=== PATIENT | female | born 1985 | race Caucasian/White ===

== ENCOUNTER → 2019-01-15 | Outpatient (REF) | payer OTHER ==
[2019-01-24 14:26] LABS: HPV HYBRID CAPTURE II Positive (Negative)
== END ==
LOC: M LAB LCGH 10:37
PROVIDERS: ATTEND Obstetrics & Gynecology
DX: Z12.4 Encounter for screening for malignant neoplasm of cervix (principal); R87.612 Low grade squamous intraepithelial lesion on cytologic smear of cervix (LGSIL)
CPT/HCPCS: 87624; G0123

== ENCOUNTER 2021-03-22 04:51 | Outpatient (CLI) | payer OTHER ==
[~2021-03-22] VITALS: Ht 157.5 cm; Wt 89.0 kg
[2021-03-22] VITALS (11 sets, daily range): BP systolic 106–125; BP diastolic 56–72
[2021-03-22] MEDS ORDERED: KEPP1SOL PO (05:57)
[2021-03-22] MEDS ORDERED: PRENTAB9 PO (05:57)
[2021-03-22] MEDS ORDERED: OMEP10CASR PO (05:57)
[2021-03-22] MEDS ORDERED: ACET325C5 PO (05:57)
[2021-03-22] MEDS ORDERED: FIORICET TAB PO PRN (06:15)
--- NOTE | 2021-03-22 06:15 | IPNPDOC ---
Text Note Date of Service The patient was seen on 03/22/21. NOTE Subjective: Shanna is a 35-year-old female who is a at 34.1 weeks gestation based off of her LMP. She is cared for by [facility]. She presented to the hospital 03/21/21 in the morning after being found by her children passed out in the bathroom. They have ruled it a seizure as she has a seizure disorder, which her Keppra levels have been non-therapeutic. Her neurologist just increa sed the Keppra to 2,000 mg BID. The patient c/o contractions every 10 minutes last night and her cervix was checked and found to be 2/50/-3, which was a change from when she came in and her cervix was 2 cm and 10% effaced. Reports history of migraines and having a migraine for the last 3 days that improved with Esgic last night. States start of headache. Does reports some contractions. Denies vaginal bleeding, bloody show, leaking of fluid. Reports baby is very active. Daughter just tested positive for COVID. Patient rapid COVID is negative. She was given 1 dose of betamethasone at 0247. She also received Magnesium, which was turned off due to it possibly causing low FHR. Medical Hx: -seizure disorder -asthma -migraines/headaches -chronic pelvic pain -depression and anxiety -renal calculi -obesity -PCOS -Ulcer -Hx of pancreatitis Surgical Hx: -appendectomy -cholecystectomy -Gastric bypass -tubal ligation with tubal reversal -elbow surgery -sinus surgery -right wrist -laparoscopy Family Hx: -Mother: diabetes, stroke, brain aneurysm -Father: diabetes, HTN, obesity Social: but in process of divorce, (FOB not her ), works at [employer], denies history of alcohol or drug use/abuse OB Hx: -: at 36 weeks of living female weighting 5 lbs 1 oz; preeclampsia -03/15/03: at 42 weeks of living male weighting 7 lbs 2 oz -09/09/05: of living male at 40 weeks weighting 8 lbs 2 oz Objective: FHR: 120, moderate variability, positive accelerations, no decelerations. Bell Arthur: Contractions: 1 total since she was transferred. VS: see below General: Alert and oriented. Does not appear to be in any discomfort. Respiratory: Regular rate and rhythm without any use of accessory muscles. Abdomen: gravid, soft and not tender to touch Assessment: IUP at 34.1 weeks gestation, transfer from [facility] for possible labor. Plan: Patient to be observed this morning. May order breakfast and take a shower. Encouraged patient to sleep. VS,Fishbone, I+O VS, Fishbone, I+O Vital Signs Date Time Temp Pulse Resp B/P (MAP) Pulse Ox O2 Delivery O2 Flow Rate FiO2 03/22/21 05:06 97.4 54 18 118/71 (87) SUDHA HERNANDEZ CNM Mar 22, 2021 06:15
[2021-03-22] MEDS ORDERED: KEPP10002 PO (06:24)
[2021-03-22] MEDS ORDERED: levETIRAcetam 250MG TABLET (KEPPRA) PO SCH (09:00)
[2021-03-22] MEDS ORDERED: PERCOCET 5MG/325MG TAB PO ONE (11:40)
[2021-03-22] MEDS ORDERED: ONDANSETRON 4MG/2ML VIAL IV ONE (15:00)
--- NOTE | 2021-03-22 16:16 | IPNPDOC ---
Text Note Date of Service The patient was seen on 03/22/21. NOTE Observation progress note/Discharge Shanna is a 35yo at 34w1d transferred from [facility] for possible labor. She has a seizure disorder for which she takes keppra and was recently found to be subtherapeutic on her keppra level so neurologist increased her dose. Yesterday morning she was found unresponsive by her kids and taken to the ER, determined to be post-ictal from a seizure. She was having uterine activity and made slight cervical change, so transferred here. She was given a dose of 12mg IM betamethasone at approx 0200 this morning. Her complaints have been headache, pelvic pressure and ctx. Good movement, no LOF/no vaginal bleeding. Of note, patient's daughter was recently dx'ed with Covid but patient tested negative (she is on contact precautions) Vitals wnl, afebrile Gen: WDWN, resting comfortably in bed Abdomen: soft, gravid, NTTP SCE: 2/thick/high, OOP Cat I FHRT with no regular uterine activity Assessment: Shanna is a 35yo at 34w1d transferred from [facility] for possible labor with no cervical change noted. No regular ctx. Headache improved after a dose of percocet. Reassuring surveillance. Plan: -Discharge to home -RNs confirmed patient can receive 2nd dose of betamethasone tomorrow morning on L&D in [place] -Discussed return precautions -continue keppra as prescribed -Follow up for betamethasone and routine care in [place] MD GUANAKITO Vyas Fishbone I+O Carol CALABRESE I+O Vital Signs Date Time Temp Pulse Resp B/P (MAP) Pulse Ox O2 Delivery O2 Flow Rate FiO2 03/22/21 14:47 97.8 85 113/61 (78) 03/22/21 12:21 16 Room Air Liberty Cates MD Mar 22, 2021 16:16
[2021-03-23] MEDS ORDERED: BETAMETHASONE SOLUSPAN 6MG/ML 5ML VIAL (J0702 PER 3MG) IM ONE (02:45)
== END 2021-03-22 15:58 | disposition home or self-care (01) ==
LOC: M LDO 04:51
PROVIDERS: ATTEND Advanced Practice Midwife
DX: O47.03 False labor before 37 completed weeks of gestation, third trimester (principal); Z3A.34 34 weeks gestation of pregnancy; O99.513 Diseases of the respiratory system complicating pregnancy, third trimester; J45.909 Unspecified asthma, uncomplicated; O99.213 Obesity complicating pregnancy, third trimester; E66.9 Obesity, unspecified; O99.844 Bariatric surgery status complicating childbirth; O99.343 Other mental disorders complicating pregnancy, third trimester; F41.9 Anxiety disorder, unspecified; F32.9 Major depressive disorder, single episode, unspecified; O99.353 Diseases of the nervous system complicating pregnancy, third trimester; G40.909 Epilepsy, unspecified, not intractable, without status epilepticus; G43.909 Migraine, unspecified, not intractable, without status migrainosus; Z90.49 Acquired absence of other specified parts of digestive tract; Z88.8 Allergy status to other drugs, medicaments and biological substances; Z91.041 Radiographic dye allergy status; Z79.899 Other long term (current) drug therapy
CPT/HCPCS: 59025; 96372; 96374; J2405

== ENCOUNTER 2022-02-21 17:29 | Outpatient (CLI) | payer OTHER ==
[2022-02-21] VITALS (11 sets, daily range): BP systolic 120–191; BP diastolic 67–107
[~2022-02-21] VITALS: Ht 157.5 cm; Wt 87.8 kg
[~2022-02-21 17:29] MED LIST: ACET325C5 PO; KEPP10002 PO; KEPP1SOL PO; OMEP10CASR PO; PRENTAB9 PO
[2022-02-21] MEDS ORDERED: HOME MED LIST COMPLETE! XX SCH (17:55)
[2022-02-21] MEDS ORDERED: AMPICILLIN SOD 2 GM in D5W MINI-BAG PLUS 100 ML IV STA (19:43)
[2022-02-21] MEDS ORDERED: LR 1,000 ML IV SCH (19:45)
[2022-02-21] MEDS ORDERED: BETAMETHASONE SOLUSPAN 6MG/ML 5ML VIAL (J0702 PER 3MG) IM SCH (19:45)
[2022-02-21] MEDS ORDERED: CALCIUM GLUCONATE 1,000 MG in D5W MINI-BAG PLUS 100 ML IV PRN (19:45)
[2022-02-21] MEDS ORDERED: MAG Sulf (OBGYN) 20GM/500ML 20,000 MG in IV 1 EA IV SCH (19:45)
[2022-02-21] MEDS ORDERED: MAG Sulf (L&D) 4 GM/100 ML 4 GM in IV 1 EA IV ONE (19:45)
[2022-02-21] MEDS ORDERED: BUTORPHANOL 2 MG/ML INJ (J0595) IV ONE (19:55)
[2022-02-21] MEDS ORDERED: PROMETHAZINE 25MG/ML 1ML VIAL IV ONE (19:55)
[2022-02-21 20:24] LABS: HEMATOCRIT 32.7 % (36.0-47.0); HEMOGLOBIN 10.3 g/dl (12.0-15.5); MEAN CORPUSCULAR HEMOGLOBIN 26.2 pg (27.0-33.0); MEAN CORPUSCULAR HGB CONC 31.5 g/dl (32.0-36.5); MEAN CORPUSCULAR VOLUME 83.2 fl (80.0-96.0); PLATELET COUNT, AUTOMATED 319 10^3/uL (150-450); RED BLOOD COUNT 3.93 10^6/uL (4.00-5.40); WHITE BLOOD COUNT 13.1 10^3/uL (4.0-10.0)
[2022-02-21 20:48] LABS: TOTAL PROTEIN,RANDOM URINE 34.1 MG/DL (0.0-12.0)
[2022-02-21 20:55] LABS: AMPHETAMINES URINE REFLEX NEGATIVE (NEGATIVE); BARBITURATES URINE REFLEX NEGATIVE (NEGATIVE); BENZODIAZEPINES URINE REFLEX NEGATIVE (NEGATIVE); CANNABINOIDS URINE REFLEX NEGATIVE (NEGATIVE); COCAINE METABOLITE URINE REFLE NEGATIVE (NEGATIVE); METHADONE URINE REFLEX NEGATIVE (NEGATIVE); PHENCYCLIDINE URINE REFLEX NEGATIVE (NEGATIVE)
[2022-02-21 21:12] LABS: ALBUMIN 2.5 GM/DL (3.2-5.2); ALT/SGPT 9 U/L (12-78); BILIRUBIN,TOTAL 0.3 MG/DL (0.2-1.0); BLOOD UREA NITROGEN 6 MG/DL (7-18); CARBON DIOXIDE LEVEL 22 MEQ/L (21-32); CHLORIDE LEVEL 111 MEQ/L (98-107); CREATININE FOR GFR 0.64 MG/DL (0.55-1.30); GLOMERULAR FILTRATION RATE > 60.0 (>60); GLUCOSE, FASTING 102 MG/DL (70-100); LDH LACTATE DEHYDROGENASE 188 U/L (84-246); POTASSIUM SERUM 3.7 MEQ/L (3.5-5.1); SODIUM LEVEL 139 MEQ/L (136-145); TOTAL PROTEIN 6.5 GM/DL (6.4-8.2)
[2022-02-21 22:24] LABS: OPIATES URINE REFLEX PENDING CONFIRMATION (NEGATIVE)
== END 2022-02-21 21:28 | disposition home or self-care (01) ==
LOC: M LDO 17:29
PROVIDERS: ATTEND Obstetrics & Gynecology
DX: O26.893 Other specified pregnancy related conditions, third trimester (principal); R10.2 Pelvic and perineal pain; M54.50 Low back pain, unspecified; N89.8 Other specified noninflammatory disorders of vagina; O99.843 Bariatric surgery status complicating pregnancy, third trimester; O09.513 Supervision of elderly primigravida, third trimester; Z3A.29 29 weeks gestation of pregnancy
CPT/HCPCS: 59025; 80053; 80307; 82570; 83615; 84156; 84550; 85027; 86850; 86900; 86901; 87081; 87426; 96372; 96374; 96375; G0480; J0290; J0595; J0702; J2550; J3475

== ENCOUNTER 2022-03-21 12:30 | Outpatient (CLI) | payer OTHER ==
[~2022-03-21] VITALS: Ht 157.5 cm; Wt 86.9 kg
[2022-03-21 12:47] VITALS: BP 115/67
[2022-03-21 18:48] VITALS: BP 114/71
[2022-03-21 20:13] VITALS: BP 110/59
[2022-03-22 02:06] VITALS: BP 121/72
[2022-03-22 06:24] VITALS: BP 104/59
[2022-03-22 07:13] VITALS: BP 92/56
[2022-03-22 07:15] VITALS: BP 91/62
[2022-03-22 07:16] VITALS: BP 116/72
[2022-03-22 08:17] VITALS: BP 119/74
== END 2022-03-22 08:25 | disposition home or self-care (01) ==
LOC: M LDO 12:30
PROVIDERS: ATTEND Advanced Practice Midwife
DX: O60.03 Preterm labor without delivery, third trimester (principal); O99.843 Bariatric surgery status complicating pregnancy, third trimester; O09.513 Supervision of elderly primigravida, third trimester; Z87.59 Personal history of other complications of pregnancy, childbirth and the puerperium; Z3A.33 33 weeks gestation of pregnancy

== ENCOUNTER 2022-04-04 08:29 | Inpatient (IN) | payer OTHER ==
[~2022-04-04] VITALS: Ht 157.5 cm; Wt 88.0 kg
[2022-04-04] VITALS (9 sets, daily range): BP systolic 119–154; BP diastolic 65–84
[2022-04-04] MEDS ORDERED: TRANEXAMIC ACID INJection 1,000 MG in NS 100 ML IV PRN (09:30)
[2022-04-04] MEDS ORDERED: CARBOPROST TROMETHAMINE 250 MCG/ML AMP IM PRN (09:30)
[2022-04-04] MEDS ORDERED: METHYLERGONOVINE MALEATE 0.2 MG/ML VIAL (J2210) IM PRN (09:30)
[2022-04-04] MEDS ORDERED: OXYTOCIN DRIP 30 UNITS in IV 1 EA IV PRN (09:30)
[2022-04-04] MEDS ORDERED: LIDOCAINE 1% MDV 20ML VIAL INFIL PRN (09:30)
[2022-04-04 11:38] LABS: HEMATOCRIT 32.4 % (36.0-47.0); HEMOGLOBIN 10.3 g/dl (12.0-15.5); MEAN CORPUSCULAR HGB CONC 31.8 g/dl (32.0-36.5); MEAN CORPUSCULAR VOLUME 78.6 fl (80.0-96.0); PLATELET COUNT, AUTOMATED 275 10^3/uL (150-450); RED BLOOD COUNT 4.12 10^6/uL (4.00-5.40); WHITE BLOOD COUNT 13.6 10^3/uL (4.0-10.0)
[2022-04-04] MEDS ORDERED: OXYTOCIN 30 UNITS IN 0.9% NaCl 500ML IV BAG (J2590) As Ordered ONE (11:56)
[2022-04-04] MEDS ORDERED: LIDOCAINE 2% INJ 100 MG/5 ML SYRINGE As Ordered ONE (16:26)
[2022-04-04] MEDS ORDERED: KETOROLAC 60MG 2ML VIAL As Ordered ONE (16:26)
[2022-04-04] MEDS ORDERED: propofoL 200 MG/20 ML VIAL As Ordered ONE (16:26)
[2022-04-04] MEDS ORDERED: dexameTHASONE 4 MG/ML 1ML VIAL (J1100 PER 1MG) As Ordered ONE (16:26)
[2022-04-04] MEDS ORDERED: ONDANSETRON 4MG 2ML VIAL As Ordered ONE (16:26)
[2022-04-04] MEDS ORDERED: METOCLOPRAMIDE INJ 10MG/2ML VIAL (J2765 PER 1) As Ordered ONE (16:26)
[2022-04-04] MEDS ORDERED: MIDAZOLAM INJ 2MG/2ML VIAL (J2250 PER 1MG) As Ordered ONE (16:27)
[2022-04-04] MEDS ORDERED: fentaNYL 100 MCG/2 ML INJECTION As Ordered ONE (16:27)
[2022-04-04 16:45] LABS: HIV 1&2 SCREEN CENTAUR NEGATIVE (NEGATIVE)
[2022-04-04] MEDS ORDERED: ROCURONIUM BROMIDE 50 MG/5 ML VIAL As Ordered ONE (16:48)
[2022-04-04] MEDS ORDERED: SUCCINYLCHOLINE 100 MG/5 ML SYRINGE (J0330) As Ordered ONE (16:49)
[2022-04-04] MEDS ORDERED: METHYLERGONOVINE MALEATE 0.2 MG/ML VIAL (J2210) As Ordered ONE (17:04)
[2022-04-04] MEDS: TRANEXAMIC ACID 100 MG/ML 10ML VIAL As Ordered ONE ×2 (17:06→17:08)
[2022-04-04] MEDS ORDERED: UNASYN 3GM VIAL As Ordered ONE (17:06)
[2022-04-04] MEDS ORDERED: CARBOPROST TROMETHAMINE 250 MCG/ML AMP As Ordered ONE (17:08)
[2022-04-04] MEDS ORDERED: OXYTOCIN INJ 10 UNITS/ML VIAL (J2590) As Ordered ONE (17:14)
[2022-04-04] MEDS ORDERED: oxyCODONE 5MG TAB PO PRN (17:25)
[2022-04-04] MEDS ORDERED: ONDANSETRON 4MG 2ML VIAL IV PRN (17:25)
[2022-04-04] MEDS ORDERED: LR 1,000 ML IV SCH (17:25)
[2022-04-04] MEDS ORDERED: fentaNYL 100 MCG/2 ML INJECTION IV PRN (17:25)
[2022-04-04] MEDS ORDERED: MOM 30ML SUSPENSION UDC PO PRN (17:45)
[2022-04-04] MEDS ORDERED: ANUSOL HC CREAM 30GM TOP PRN (17:45)
[2022-04-04] MEDS ORDERED: METHYLERGONOVINE MALEATE 0.2 MG TAB PO PRN (17:45)
[2022-04-04] MEDS ORDERED: ACETAMINOPHEN 500 MG TAB PO PRN (17:45)
[2022-04-04] MEDS ORDERED: DOCUSATE SODIUM 100MG CAPSULE PO PRN (17:45)
[2022-04-04] MEDS ORDERED: OXYTOCIN DRIP 30 UNITS in IV 1 EA IV SCH (17:45)
[2022-04-04] MEDS ORDERED: IBUPROFEN 600MG TAB PO PRN (17:45)
[2022-04-04] MEDS ORDERED: DIBUCAINE 1% OINTMENT 30GM TOP PRN (17:45)
[2022-04-04] MEDS ORDERED: RHOGAM 300 MCG (1500 IU) INJ (J2790) IM SCH (17:45)
[2022-04-04] MEDS ORDERED: ACETAMINOPHEN TAB 650MG DOSE (2X325MG) PO PRN (17:45)
[2022-04-04] MEDS ORDERED: ONDANSETRON 4MG TAB PO PRN (20:25)
[2022-04-04 20:32] LABS: HEMATOCRIT 29.8 % (36.0-47.0); HEMOGLOBIN 9.8 g/dl (12.0-15.5); MEAN CORPUSCULAR HEMOGLOBIN 25.5 pg (27.0-33.0); MEAN CORPUSCULAR HGB CONC 32.9 g/dl (32.0-36.5); MEAN CORPUSCULAR VOLUME 77.6 fl (80.0-96.0); PLATELET COUNT, AUTOMATED 218 10^3/uL (150-450); RED BLOOD COUNT 3.84 10^6/uL (4.00-5.40); WHITE BLOOD COUNT 19.2 10^3/uL (4.0-10.0)
[2022-04-05 02:22] VITALS: BP_SYST 111; BP_SYST 99; BP_DIAS 55; BP_DIAS 63
[2022-04-05] MEDS ORDERED: LR 1,000 ML IV STA (05:26)
[2022-04-05 05:58] VITALS: BP 103/53
[2022-04-05] MEDS ORDERED: LR 1,000 ML IV SCH (06:30)
[2022-04-05] MEDS: PRENATAL VITAMINS CHEWABLE TABLET PO SCH (07:56)
[2022-04-05] MEDS: IBUPROFEN 800 MG TAB PO PRN ×2 (07:57→20:49)
[2022-04-05] MEDS ORDERED: BOOSTRIX/ADACEL VACCINE (DIPHTH/PERTUSS/ACELL/TETANUS) 0.5ML SYR IM.IMMUN ONE (09:00)
[2022-04-05 10:01] VITALS: BP 118/62
[2022-04-05 14:08] VITALS: BP 111/58
[2022-04-05 18:24] VITALS: BP 112/57
[2022-04-05 21:06] VITALS: BP 104/55
[2022-04-06 02:09] VITALS: BP 140/79
[2022-04-06 06:01] VITALS: BP 109/57
[2022-04-06] MEDS: PRENATAL VITAMINS CHEWABLE TABLET PO SCH (08:35)
[2022-04-06] MEDS ORDERED: MEASLES,MUMPS,RUBELLA VACCINE INJ (MMR-II) (90707) SC.IMMUN ONE (09:00)
[2022-04-06 10:00] VITALS: BP 115/66
== END 2022-04-06 14:45 | disposition home or self-care (01) | DRG 541 ==
LOC: M LDO 08:29 → M LDI 08:50 → M OBS 18:49
PROVIDERS: ADMIT Obstetrics & Gynecology; ATTEND Obstetrics & Gynecology
PROC: 10D17Z9 Manual Extraction of Products of Conception, Retained, Via Natural or Artificial Opening (ICD-10-PCS; 2022-04-04)
PROC: 10E0XZZ Delivery of Products of Conception, External Approach (ICD-10-PCS; principal; 2022-04-04 16:20)
DX: O60.14X0 Preterm labor third trimester with preterm delivery third trimester, not applicable or unspecified (principal); O72.0 Third-stage hemorrhage; O72.1 Other immediate postpartum hemorrhage; Z37.0 Single live birth; Z3A.35 35 weeks gestation of pregnancy; O09.523 Supervision of elderly multigravida, third trimester; Z91.041 Radiographic dye allergy status; Z88.8 Allergy status to other drugs, medicaments and biological substances

== ENCOUNTER → 2024-10-15 | Outpatient (REF) | payer OTHER ==
[2024-10-15 16:26] LABS: APPEARANCE, URINE CLOUDY (CLEAR); BACTERIA, URINE AUTO NEGATIVE (NEGATIVE); BILIRUBIN, URINE AUTO NEGATIVE (NEGATIVE); BLOOD, URINE BLOOD NEGATIVE (NEGATIVE); COLOR, URINE YELLOW (YELLOW); GLUCOSE, URINE (UA) AUTO NEGATIVE (NEGATIVE); KETONE, URINE AUTO NEGATIVE (NEGATIVE); LEUKOCYTE ESTERASE, URINE AUTO TRACE (NEGATIVE); NITRITE, URINE AUTO NEGATIVE (NEGATIVE); PROTEIN, URINE AUTO NEGATIVE (NEGATIVE); RBC, URINE AUTO 1 /HPF (0-3); SQUAMOUS EPITHELIAL CELL UR AU 21 /HPF (0-6); UROBILINOGEN, URINE AUTO 0.2 mg/dL (0.0-2.0); WBC, URINE AUTO 4 /HPF (0-3)
[2024-10-15 16:45] LABS: TOTAL PROTEIN,RANDOM URINE 9.8 MG/DL (0.0-14.0)
[2024-10-15 16:51] LABS: CREATININE,RANDOM URINE 55.9 MG/DL
[2024-10-15 17:09] LABS: BASO # 0.1 10^3/uL (0.0-0.2); BASO % 0.9 % (0.0-1.0); EOS # 0.3 10^3/uL (0.0-0.5); EOS % 4.8 % (0.0-3.0); HEMATOCRIT 41.6 % (36.0-47.0); HEMOGLOBIN 13.6 g/dl (12.0-15.5); LYMPH # 1.5 10^3/uL (1.5-5.0); LYMPH % 25.9 % (24.0-44.0); MEAN CORPUSCULAR HEMOGLOBIN 30.3 pg (27.0-33.0); MEAN CORPUSCULAR HGB CONC 32.7 g/dl (32.0-36.5); MEAN CORPUSCULAR VOLUME 92.7 fl (80.0-96.0); MONO # 0.5 10^3/uL (0.0-0.8); NEUTROPHILS # 3.4 10^3/uL (1.5-8.5); NEUTROPHILS % 60.2 % (36.0-66.0); PLATELET COUNT, AUTOMATED 259 10^3/uL (150-450); RED BLOOD COUNT 4.49 10^6/uL (4.00-5.40); WHITE BLOOD COUNT 5.6 10^3/uL (4.0-10.0)
[2024-10-15 17:10] LABS: ALBUMIN 4.1 G/DL (3.2-5.2); ALKALINE PHOSPHATASE 59 U/L (35-104); ALT/SGPT 14 U/L (7.0-40); AST/SGOT 13 U/L (<34); BILIRUBIN,TOTAL 0.2 MG/DL (0.3-1.2); BLOOD UREA NITROGEN 13 MG/DL (9-23); C REACTIVE PROTEIN QUANTITATIV < 0.50 MG/DL (<1.0); CALCIUM LEVEL 9.8 MG/DL (8.5-10.1); CARBON DIOXIDE LEVEL 23 MMOL/L (20-31); CHLORIDE LEVEL 109 MMOL/L (98-107); CREATININE FOR GFR 0.69 MG/DL (0.55-1.30); GLOMERULAR FILTRATION RATE > 60.0 (>58); GLUCOSE, FASTING 85 MG/DL (60-100); POTASSIUM SERUM 4.5 MMOL/L (3.5-5.1); SODIUM LEVEL 143 MMOL/L (136-145); TOTAL PROTEIN 7.5 G/DL (5.7-8.2)
[2024-10-15 17:11] LABS: COMPLEMENT C3 139.5 MG/DL (90.0-170.0); COMPLEMENT C4 33.8 MG/DL (12-36)
[2024-10-15 17:53] LABS: ERYTHROCYTE SEDIMENTATION RATE 11 mm/hr (0-20)
== END ==
LOC: M SFHCRHEU 13:14
PROVIDERS: ATTEND Internal Medicine Rheumatology
DX: R76.8 Other specified abnormal immunological findings in serum (principal); R53.83 Other fatigue; R52 Pain, unspecified; R21 Rash and other nonspecific skin eruption